=== PATIENT | female | born 1975 | race Caucasian/White ===

== ENCOUNTER 2016-09-23 11:27 | Emergency (ER) | payer OTHER ==
[~2016-09-23] VITALS: Ht 160 cm; Wt 84.9 kg
[~2016-09-23 11:27] MED LIST: ADDE30TA PO; LEVE500 PO; XANA0.5T PO; ZOLO50TA PO
[2016-09-23 11:49] VITALS: BP 110/70; PULSE 72; RESP 20; TEMP 98.8
[2016-09-23] MEDS ORDERED: ADDE30TA PO (12:37)
[2016-09-23] MEDS ORDERED: SYNT25TA PO (12:37)
[2016-09-23] MEDS ORDERED: PROPARACAINE HCL 0.5% OPHT SOLN 15 ML BTL RIGHT EYE ONE (12:45)
--- NOTE | 2016-09-23 13:14 | PD ---
HPI Chief Complaint: Eye Problems/Injury Time Seen by Provider: 12:50 Travel History International Travel<30 days: No Contact w/Intl Traveler<30days: No Traveled to known affect area: No History of Present Illness HPI 41-year-old female presents the emergency Department with right eye pain, swelling, and drainage. 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 Patient states it started yesterday and got progressively worse since then. Patient denies ever, chills, headache, sore throat, ear pain, or other constitutional symptoms. Patient states her vision is somewhat blurred, but it's due to the discomfort. Patient is allergic to Phenergan and Wellbutrin. PFSH Past Medical History ADD: Yes Asthma: No Blood Disorders: No Anxiety: Yes (OCC, TAKES XANAX ) Depression: Yes Heart Rhythm Problems: No Cancer: No Cardiovascular Problems: No High Cholesterol: No Chemotherapy: No Chest Pain: No Congestive Heart Failure: No COPD: No Diabetes: No Diminished Hearing: No Endocrine: No Genitourinary: No Headaches: Yes Immune Disorder: No Musculoskeletal: Yes (BACK PAIN) Neurologic: Yes (CHRONIC BERMAN'S ) Psychiatric: No Reproductive: No Respiratory: No Radiation Therapy: No Seizures: Yes Sleep Apnea: No Thyroid Disease: Yes ?: Unknown LMP: 2 WEEKS AGO : 1 Para: 1 Miscarriage: 0 Past Surgical History Abdominal Surgery: Yes (C SECTION) Appendectomy: Yes Section: Yes Cholecystectomy: Yes Ear Surgery: Yes Tonsillectomy: Yes Other Surgery: Yes (C SECTION/ GALLBLADDER) Social History Alcohol Use: Yes (OCCASIONALLY) Tobacco Use: No Substance Use: No Allergies-Medications (Allergen,Severity, Reaction): Coded Allergies: Phenergan (Verified Allergy, Intermediate, agitation, 09/23/16) Wellbutrin (Verified Allergy, Intermediate, 09/23/16) Reported Meds & Prescriptions Reported Meds & Active Scripts Active Reported Adderall (Amphetamine-Dextroamphetamine) 30 Mg Tab 30 Mg PO DAILY Avoid late evening doses. Space doses at least 4 to 6 hours if more than once/day dosing. Synthroid (Levothyroxine Sodium) 25 Mcg Tab 25 Mcg PO DAILY Review of Systems Except as stated in HPI: all other systems reviewed are Neg General / Constitutional: No: Fever Eyes: Positive: Blurred Vision (mild), Photophobia, Drainage, Redness, Foreign Body Sensation, Pain, Tearing, No: Diploplia, Blind Spots, Visual changes, Blindness HENT: No: Headaches, Sore Throat, Rhinitis, Rhinorrhea, Congestion, Nosebleed, Neck Stiffness, Neck Pain, Earache Cardiovascular: No: Chest Pain or Discomfort Respiratory: No: Shortness of Breath Gastrointestinal: No: Abdominal Pain Genitourinary: No: Dysuria Musculoskeletal: No: Pain Skin: No Rash Neurologic: No: Weakness Psychiatric: No: Depression Endocrine: No: Polydipsia Hematologic/Lymphatic: No: Easy Bruising Physical Exam Narrative GENERAL: Patient appears in mild to moderate distress. SKIN: Warm and dry. Normal color. Normal turgor. HEAD: Atraumatic. Normocephalic. EYES: Pupils equal and round. No scleral icterus. Moderate erythematous injection and watery drainage from the right, normal on the left. Proparacaine drops were instilled and are seen dye used 2 examined with Wood's lamp. There is noted to be a small hordeolum along the upper middle eyelid. There are no obvious signs of corneal injury. ENT: No nasal bleeding or discharge. Mucous membranes pink and moist. Pharynx is clear. NECK: Trachea midline. No JVD. Supple nontender. CARDIOVASCULAR: Regular rate and rhythm. RESPIRATORY: No accessory muscle use. Clear to auscultation. Breath sounds equal bilaterally. MUSCULOSKELETAL: Extremities without clubbing, cyanosis, or edema. No obvious deformities. NEUROLOGICAL: Awake and alert. No obvious cranial nerve deficits. Motor grossly within normal limits. Five out of 5 muscle strength in the arms and legs. Normal speech. PSYCHIATRIC: Appropriate mood and affect; insight and judgment normal. Data Data Last Documented VS Vital Signs Date Time Temp Pulse Resp B/P Pulse Ox O2 Delivery O2 Flow Rate FiO2 09/23/16 11:49 98.8 72 20 110/70 Orders Proparacaine 0.5% Opth Soln (Alcaine 0.5 (09/23/16 12:45) MDM Medical Decision Making Medical Screen Exam Complete: Yes Emergency Medical Condition: Yes Differential Diagnosis Conjunctivitis. Corneal abrasion. Hordeolum. Narrative Course Patient is medically stable at time of exam. Proparacaine drops are instilled in the right eye with Wood's lamp exam with fluorescein dye utilized. Patient will be treated Maxitrol ophthalmic drops every 3 hours while awake for the next 7 days. Warm compresses and ibuprofen should be utilized as well. Work note is given. 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 Diagnosis Primary Impression: Sty, external Qualified Code: H00.011 - Hordeolum externum of right upper eyelid Additional Impression: Conjunctivitis Qualified Code: H10.31 - Acute conjunctivitis of right eye, unspecified acute conjunctivitis type Patient Instructions: Conjunctivitis (ED), General Instructions, Stye (ED) Departure Forms: Work Release Enter return to work date: Sep 25, 2016 Additional Instructions: Proparacaine drops are instilled in the right eye with Wood's lamp exam with fluorescein dye utilized. Patient will be treated Maxitrol ophthalmic drops every 3 hours while awake for the next 7 days. Warm compresses and ibuprofen should be utilized as well. Work note is given. 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 Med/Other Pt SpecificInfo: Prescription(s) given Disposition: DISCHARGE HOME Condition: Stable Victoriano Morrow Sep 23, 2016 13:14
[2016-09-23] MEDS ORDERED: IBUP-232 PO (13:15)
[2016-09-23] MEDS ORDERED: MAXI5O EACH EYE (13:15)
== END 2016-09-23 13:20 | disposition home or self-care (01) ==
LOC: PHEFT 11:27
DX: H00.011 Hordeolum externum right upper eyelid (principal); H10.31 Unspecified acute conjunctivitis, right eye
CPT/HCPCS: 99283